=== PATIENT | male | born 2000 | race Caucasian/White ===

== ENCOUNTER 2021-02-16 18:29 | Emergency (ER) | payer OTHER ==
[~2021-02-16] VITALS: Ht 172.7 cm; Wt 104.0 kg
--- NOTE | 2021-02-16 20:20 | RAD ---
Study: XR ABDOMEN 1V Indication: Constipation. Comparison: None. Findings: Nonobstructive bowel gas pattern. Small amount of well-formed stool within the colon. No pneumoperito neum. No radiographic evidence for organomegaly. Impression: Nonobstructive bowel gas pattern. Small amount of well-formed stool within the colon. Electronically signed by: HOA BOATENG MD (02/16/2021 8:18 PM) [facility]
[2021-02-16] MEDS ORDERED: MAGNESIUM CITRATE 296 ML SOLUTION. PO ONE (20:30)
--- NOTE | 2021-02-16 20:49 | PHYS DOC ---
Past History Past Medical History: No Pertinent History (XIANG VILA APRN) Past Surgical History: No Surgical History (XIANG VILA APRN) Alcohol Use: Occasionally (XIANG VILA APRN) Adult General Chief Complaint Chief Complaint: Neck Pain HPI HPI Patient is a 21-year-old male, presents emergency department complaining of right-sided neck pain for the past 2 weeks, right knee numbness off and on, constipation problems for "quite some time ". Patient denies any nausea, vomiting, or diarrhea. Patient denies chest pain or shortness of breath. Arnaldo ramirez denies any recent fever or chills. Patient denies any injury to his right knee. Patient states he had a normal BM yesterday. Patient denies taking any medications at home, takes no prescription medications, no [id number] medications, has no known drug allergies, patient states he vapes but does not smoke cigarettes, denies illicit drug use, drinks occasionally on the weekends. Patient denies injury to his neck, however he states he thinks he may have slept funny on it since he has had a stiff neck for the past 2 weeks. (XIANG VILA APRN) Review of Systems Review of Systems 14 body systems of review of systems have been reviewed. See HPI for pertinent positives and negative responses, otherwise all other systems are negative, nonpertinent or noncontributory. (XIANG VILA APRN) Current Medications Current Medications Current Medications Medications (Trade) Dose Ordered Sig/Liz Start Time Stop Time Status Last Admin Dose Admin Magnesium Citrate (Citroma) 296 ml 1X ONCE 02/16/21 20:30 02/16/21 20:37 DC (XIANG VILA APRN) Allergies Allergies Allergies Coded Allergies Type Severity Reaction Last Updated Verified No Known Drug Allergies 02/16/21 No (XIANG VILA APRN) Physical Exam Physical Exam Constitutional: Well developed, well nourished, no acute distress, non-toxic appearance. 21-year-old male in no apparent distress. HENT: Normocephalic, atraumatic, bilateral external ears normal, oropharynx moist, no oral exudates, nose normal. No lymphadenopathy of the head or neck appreciated, oropharynx pink moist and without infectious process appreciated. No meningismus signs, no drooling, no trismus. Eyes: PERRLA, EOMI, conjunctiva normal, no discharge. Neck: Normal range of motion, no tenderness, supple, no stridor. No nuchal rigidity, no midline spine tenderness, no meningismus signs, pain along right trapezius muscle, there is no muscle spasm appreciated, no cervical spine step- offs appreciated. Cardiovascular:Heart rate regular rhythm, no murmur, heart sounds S1-S2 to auscultation. Lungs & Thorax: Bilateral breath sounds clear to auscultation all lung godoy, no adventitious lung sounds appreciated. Abdomen: Bowel sounds normal, soft, no tenderness, no masses, no pulsatile masses. Skin: Warm, dry, no erythema, no rash. Back: No tenderness, no CVA tenderness. Extremities: No tenderness, no cyanosis, no clubbing, ROM intact, no edema. Negative Ollie's test, negative Anthony's test, negative valgus and varus test of the right knee. No swelling appreciated, no deformity of the right knee appreciated, distal cap refill less than 2 seconds. Neurologic: Alert and oriented X 3, normal motor function, normal sensory function, no focal deficits noted. Psychologic: Affect normal, judgement normal, mood normal. (XIANG VILA APRN) Current Patient Data Vital Signs Vital Signs Date Time Temp Pulse Resp B/P (MAP) Pulse Ox O2 Delivery O2 Flow Rate FiO2 02/16/21 19:00 98.5 89 20 120/80 (93) 97 Room Air (XIANG VILA APRN) EKG EKG [] (XIANG VILA APRN) Radiology/Procedures Radiology/Procedures PATIENT: QUIRINO ASENCIO ACCOUNT: [id number] : 2000 LOCATION: ER AGE: 21 SEX: M EXAM STATUS: REG ER ORD. PHYSICIAN: XIANG VILA APRN REASON: CONSTIPATION PROCEDURE: KUB Study: XR ABDOMEN 1V Indication: Constipation. Comparison: None. Findings: Nonobstructive bowel gas pattern. Small amount of well-formed stool within the colon. No pneumoperitoneum. No radiographic evidence for organomegaly. Impression: Nonobstructive bowel gas pattern. Small amount of well-formed stool within the colon. Electronically signed by: HOA BOATENG MD (02/16/2021 8:18 PM) [facility] DICTATED AND SIGNED BY: HOA BOATENG MD DATE: 02/16/212016 CC: XIANG VILA APRN; PCP,UNKNOWN ~MTH0 0 (XIANG VILA APRN) Heart Score C/O Chest Pain: No Risk Factors: Risk Factors: DM, Current or recent (<one month) smoker, HTN, HLP, family history of CAD, obesity. Risk Scores: Risk Factors: DM, Current or recent (<one month) smoker, HTN, HLP, family history of CAD, obesity. (XIANG VILA APRN) Course & Med Decision Making Course & Med Decision Making Pertinent Labs and Imaging studies reviewed. (See chart for details) 21-year-old male, vital signs reviewed, presents emergency department concerning for neck pain, constipation, and right knee pain. Physical examination was on remarkable. Will order KUB to evaluate patient's complaint of constipation. KUB interpreted by house radiologist shows bowel gas pattern with small amount of stool. We will treat patient's constipation with magnesium citrate. Patient requesting 1 day off of work, will give patient work excuse. Will recommend [id number] Tylenol and Motrin for ongoing neck pain and right knee pains. Dontrell wrap to right knee applied by ED clothing designer. Patient gave verbal understanding of discharge home instructions, magnesium citrate use, follow-up with primary care physician soon, Dontrell wrap to right knee use, return to ER precautions and concerns, patient had no further questions or concerns, was discharged to home without incident. (XIANG VILA APRN) Course & Med Decision Making Did not see or evaluate patient. Agree with TEMPERING OVEN OPERATOR's work-up and disposition per note. (MARYCARMEN CABA MD) Dragon Disclaimer Dragon Disclaimer This electronic medical record was generated, in whole or in part, using a voice recognition dictation system. (XIANG VILA APRN) Departure Departure: Impression: Primary Impression: Constipation Additional Impressions: Stiff neck Right knee pain Disposition: 01 DC HOME SELF CARE/HOMELESS Condition: GOOD Referrals: PCP,UNKNOWN (PCP) Patient Instructions: Knee Wraps (Elastic Bandage) and RICE Additional Instructions: Please use Dontrell wrap to support your right knee, take the magnesium citrate medication as directed, follow-up with your doctor at the [facility] soon for reevaluation for ongoing problems, return to the emergency department for worsening symptoms or other concerns. EMERGENCY DEPARTMENT GENERAL DISCHARGE INSTRUCTIONS Thank you for coming to [facility] (ED) today and trusting us with you care. We trust that you had a positivie experience in our Emergency Department. If you wish to speak to the department management, you may call the director at [phone]. YOUR FOLLOW UP INSTRUCTIONS ARE FOLLOWS: 1. Do you have a private Doctor? If you do not have a private doctor, please ask for a resource list of physicians or clinics that may be able to assist you with follow up care. 2. The Emergency Physician has interpreted your x-rays. The X-Ray specialist will also review them. If there is a change in the findings, you will be notified in 48 hours when at all possible. 3. A lab test or culture has been done, your results will be reviewed and you will be notified if you need a change in treatment. ADDITIONAL INSTRUCTIONS AND INFORMATION: 1. Your care today has been supervised by a physician who is specially trained in emergency care. Many problems require more than one evaluation for a complete diagnosis and treatment. We recommend that you schedule your follow up appointment as recommended to ensure complete treatment of you illness or injury. If you are unable to obtain follow up care and continue to have a problem, or if your condition worsens, we recommend that you return to the ED. 2. We are not able to safely determine your condition over the phone nor are we able to give sound medical advice over the phone. For these safety reasons, if you call for medical advice we will ask you to come to the ED for further evaluation. 3. If you have any questions regarding these discharge instructions please call the ED at [phone]. SAFETY INFORMATION: In the interest of safety, wellness, and injury prevention; we encourage you to wear your sealbelt, if you smoke; quite smoking, and we encourage family to use a protective helmet for bicycling and other sporting events that present an increased risk for head injury. IF YOUR SYMPTOMS WORSEN OR NEW SYMPTOMS DEVELOP, OR YOU HAVE CONCERNS ABOUT YOUR CONDITION; OR IF YOUR CONDITION WORSENS WHILE YOU ARE WAITING FOR YOUR FOLLOW UP APPOINTMEN T; EITHER CONTACT YOUR PRIMARY CARE DOCTOR, THE PHYSICIAN WHOSE NAME AND NUMBER YOU WERE GIVEN, OR RETURN TO THE ED IMMEDIATELY. Problem Qualifiers Primary Impression: Constipation Constipation type: unspecified constipation type Qualified Codes: K59.00 - Constipation, unspecified Additional Impressions: Right knee pain Chronicity: acute Qualified Codes: M25.561 - Pain in right knee XIANG VILA APRN Feb 16, 2021 20:48 MARYCARMEN CABA MD Feb 17, 2021 00:01
[2021-02-16 21:00] VITALS: BP 146/73
== END 2021-02-16 21:05 | disposition home or self-care (01) ==
LOC: ER 18:29
DX: K59.00 Constipation, unspecified (principal); M43.6 Torticollis; M25.561 Pain in right knee
CPT/HCPCS: 74018; 99283

== ENCOUNTER 2021-02-18 12:16 | Emergency (ER) | payer OTHER ==
[~2021-02-18] VITALS: Ht 172.7 cm; Wt 102.8 kg
[2021-02-18] MEDS ORDERED: METOCLOPRAMIDE HCL 10 MG/2 ML VIAL. IVP ONE (13:15)
[2021-02-18] MEDS ORDERED: diphenhydrAMINE 50 MG/ML VIAL IVP ONE (13:15)
[2021-02-18] MEDS ORDERED: DEXAMETHASONE SOD PHOS 10 MG/ML VIAL. IVP ONE (13:15)
[2021-02-18] MEDS ORDERED: KETOROLAC 15 MG/ML VIAL. IVP ONE (13:15)
[2021-02-18] MEDS ORDERED: IV NORMAL SALINE 1,000ML 1,000 ML IV ONE (13:15)
[2021-02-18] MEDS ORDERED: IOHEXOL 350 MG/ML 100 ML VIAL. IV ONE (13:30)
--- NOTE | 2021-02-18 13:37 | EKG ---
[address] [address] Test Date: 2021-02-18 Test Time: 13:11:18 Pat Name: QUIRINO ASENCIO Department: Room: Gender: M General Agent: : [id number] Requested By: XIANG FRANK Order Number: [id number] Reading MD: Measurements Intervals [place] Rate: 81 P: 43 CO: 162 QRS: 15 QRSD: 76 T: 32 QT: 344 QTc: 400 Interpretive Statements SINUS RHYTHM R-S TRANSITION ZONE IN V LEADS DISPLACED TO THE RIGHT OTHERWISE NORMAL ECG RI6.02 No previous ECG available for comparison
--- NOTE | 2021-02-18 13:46 | RAD ---
Exam Date: 02/18/2021 1:[address] HEAD/BRAIN WO Indication: Reason: right sided numbness / Spl. Instructions: / History: TECHNIQUE: Head CT was performed without intravenous contrast. One or more of the following dose re duction techniques were utilized: *Automated exposure control (AEC) *Adjustment of mA and/or kV according to patient size *Use of iterative reconstruction technique *CT scan done according to ALARA, or ALARA/IMAGE GENTLY FINDINGS: The ventricles and sulci are normal for the patient's stated age. There is no evidence of acute int racranial hemorrhage, extra-axial collection, mass effect, midline shift, or acute territorial infarc t. No lesion of the skull base or the calvarium is seen. There is opacification of the right maxillar y sinus. The visualized paranasal sinuses, mastoid air cells and orbits are otherwise normal in appea wilfred. IMPRESSION: No evidence for acute intracranial abnormality. Electronically signed by: Jelani Feliciano MD (02/18/2021 1:43 PM) [id number]
[2021-02-18 14:11] LABS: BASO % 0 % (0-3); EOS # 0.1 x10^3/uL (0.0-0.7); EOS % 1 % (0-3); HEMATOCRIT 46.1 % (39.0-53.0); HEMOGLOBIN 15.6 g/dL (13.0-17.5); LYMPH # 2.2 x10^3/uL (1.0-4.8); LYMPH % 26 % (24-48); MEAN CORPUSCULAR HEMOGLOBIN 29 pg (25-35); MEAN CORPUSCULAR HGB CONC 34 g/dL (31-37); MEAN CORPUSCULAR VOLUME 86 fL (79-100); MONO # 0.6 x10^3/uL (0.0-1.1); MONO % 8 % (0-9); NEUT # 5.5 x10^3uL (1.8-7.7); NEUT % 65 % (31-73); PLATELET COUNT 253 x10^3/uL (140-400); RED BLOOD COUNT 5.37 x10^6/uL (4.30-5.70); RED CELL DISTRIBUTION WIDTH 13.1 % (11.5-14.5); WHITE BLOOD COUNT 8.5 x10^3/uL (4.0-11.0)
--- NOTE | 2021-02-18 14:15 | RAD ---
EXAMINATION: CTA HEAD AND NECK W/WO CONTRAST CLINICAL HISTORY: Right face, arm, and leg numbness. Headache. TECHNIQUE: Spiral high resolution axial images were obtained through the head, neck and superior medi astinum following bolus administration of intravenous contrast for CT angiography. 3D postprocessing with maximum intensity projection images also performed. CT Dose Reduction Employed: One or more of the following individualized dose reduction techniques wer e utilized for this examination: 1. Automated exposure control 2. Adjustment of the mA and/or kV ac cording to patient size 3. Use of iterative reconstruction technique. COMPARISON: NECT head same day FINDINGS: HEAD: No evidence of acute ischemic stroke or intracranial hemorrhage. Asymmetrically small and completely opacified right maxillary sinus. NECK: Soft Tissues: No evidence of organized soft tissue collection or mass. No cervical lymphadenopathy. Spine: Normal anatomic alignment. No significant degenerative changes. Lung Apices: Visualized lung apices unremarkable. CT ARTERIOGRAM: Extracranial Circulation: Aortic Arch: Normal branching pattern from the aortic arch. No significant stenosis in the proximal b rachiocephalic vessels. Carotid Stenosis: Right Common: No significant stenosis. Right Internal Carotid Plaque: No significant plaque formation. Right Internal Carotid Stenosis (% by NASCET Criteria): No significant stenosis. Left Common: No significant stenosis. Left Internal Carotid Plaque: No significant plaque formation. Left Internal Carotid Stenosis (% by NASCET Criteria): No significant stenosis. Cervical Vertebral Arteries: Patency: Bilateral Dominance: Codominant Intracranial Circulation: Anterior Circulation: No evidence of large vessel occlusion. Vertebrobasilar Circulation: No evidence of large vessel occlusion. IMPRESSION: No evidence of large vessel occlusion or significant carotid arterial stenosis. If concern for acute CVA persists, recommend MRI for further evaluation. Completely opacified right maxillary sinus, correlate clinically for sinus disease. Electronically signed by: Roberth Harris DO (02/18/2021 2:12 PM) [id number]
[2021-02-18 14:25] LABS: POTASSIUM ISTAT 4.3 mmol/L (3.5-5.0)
[2021-02-18] MEDS ORDERED: BUTA1TAB23 PO (15:17)
--- NOTE | 2021-02-18 15:17 | PHYS DOC ---
Past History Past Medical History: No Pertinent History Past Medical History History of substance abuse for which he was treated Past Surgical History: No Surgical History Additional Smoking Information: pt endorses vape use-daily and constantly (every few minutes) Alcohol Use: Occasionally Drug Use: None Social History Patient works nights and sleeps during the day. General Adult EDM: Chief Complaint: NEURO SYMPTOMS/DEFICITS HPI: HPI: Patient is a 21-year-old male who presents to the emergency department with right-sided face numbness as well as right arm and right leg numbness. This has been occurring for the past few weeks and has increased in frequency. This occurs in the mornings before he falls asleep after patient gets out of mini shifter at work. Patient also complains of headache which is localized behind his right eye. Patient denies any muscle weakness on his right side. Patient d enies any pain on right side of face, right arm, right leg. Patient claims this numbness has persisted longer than usual, usually it resolves after couple of hours or when the patient falls asleep. Patient claimed to have change in vision that resolved spontaneously and said that these episodes correlate with the numbness and headaches. Patient denies any fever, chills, nausea. vomiting, diarrhea Review of Systems: Review of Systems: Constitutional: Denies fever or chills Eyes: Denies redness or eye pain HENT: Right-sided facial numbness, denies nasal congestion or sore throat Respiratory: Denies cough or shortness of breath Cardiovascular: Denies chest pain or palpitations GI: Denies abdominal pain, nausea, or vomiting : Denies dysuria or hematuria Musculoskeletal: Right arm numbness, right leg numbness, no weakness, no pain Integument: Denies rash or skin lesions Neurologic: Right sided headache behind right eye, no aura Complete systems were reviewed and found to be within normal limits, except as documented in this note. Family History: Family History: No relevant family history Current Medications: Current Meds: Current Medications Medications (Trade) Dose Ordered Sig/Liz Start Time Stop Time Status Last Admin Dose Admin Dexamethasone Sodium Phosphate (Decadron) 10 mg 1X ONCE 02/18/21 13:15 02/18/21 13:16 DC 02/18/21 13:49 10 MG Diphenhydramine HCl (Benadryl) 25 mg 1X ONCE 02/18/21 13:15 02/18/21 13:16 DC 02/18/21 13:50 25 MG Iohexol (Omnipaque 350 Mg/ml) 100 ml 1X ONCE 02/18/21 13:30 02/18/21 13:37 DC 02/18/21 13:44 100 ML Ketorolac Tromethamine (Toradol 15mg Vial) 15 mg 1X ONCE 02/18/21 13:15 02/18/21 13:16 DC 02/18/21 13:50 15 MG Metoclopramide HCl (Reglan Vial) 10 mg 1X ONCE 02/18/21 13:15 02/18/21 13:16 DC 02/18/21 13:49 10 MG Sodium Chloride 1,000 ml @ 1,000 mls/hr 1X ONCE 02/18/21 13:15 02/18/21 14:14 DC 02/18/21 13:49 1,000 MLS/HR Allergies: Allergies: Allergies Coded Allergies Type Severity Reaction Last Updated Verified No Known Drug Allergies 02/16/21 No Physical Exam: PE: Constitutional: Well developed, well nourished, no acute distress, non-toxic appearance HENT: Normocephalic, atraumatic Eyes: conjunctiva normal, no discharge Neck: Normal range of motion, no tenderness, supple Lungs & Thorax: No respiratory distress, equal chest rise and fall Abdomen: Soft, no tenderness Skin: Warm, dry, no erythema, no rash Back: No tenderness, no CVA tenderness Extremities: No tenderness, ROM intact, no edema Neurologic: Alert and oriented X 3, normal motor function, right arm and leg reduced sensation to palpation Psychologic: Affect normal, judgment normal Current Patient Data: Labs: Laboratory Tests Test 02/18/21 13:40 02/18/21 13:50 White Blood Count 8.5 x10^3/uL (4.0-11.0) Red Blood Count 5.37 x10^6/uL (4.30-5.70) Hemoglobin 15.6 g/dL (13.0-17.5) POC Hemoglobin 16.0 gm/dL Hematocrit 46.1 % (39.0-53.0) POC Hematocrit 47 % Mean Corpuscular Volume 86 fL (79-100) Mean Corpuscular Hemoglobin 29 pg (25-35) Mean Corpuscular Hemoglobin Concent 34 g/dL (31-37) Red Cell Distribution Width 13.1 % (11.5-14.5) Platelet Count 253 x10^3/uL (140-400) Neutrophils (%) (Auto) 65 % (31-73) Lymphocytes (%) (Auto) 26 % (24-48) Monocytes (%) (Auto) 8 % (0-9) Eosinophils (%) (Auto) 1 % (0-3) Basophils (%) (Auto) 0 % (0-3) Neutrophils # (Auto) 5.5 x10^3uL (1.8-7.7) Lymphocytes # (Auto) 2.2 x10^3/uL (1.0-4.8) Monocytes # (Auto) 0.6 x10^3/uL (0.0-1.1) Eosinophils # (Auto) 0.1 x10^3/uL (0.0-0.7) Basophils # (Auto) 0.0 x10^3/uL (0.0-0.2) POC Sodium 141 mmol/L (135-145) POC Potassium 4.3 mmol/L (3.5-5.0) POC Chloride 103 mmol/L (98-110) POC Total CO2 28 mmol/L (23-32) Anion Gap 15 mmol/L (6-14) H POC Blood Urea Nitrogen 21 mg/dL (8-26) POC Creatinine 1.0 mg/dL (0.5-1.4) Glucose Level 82 mg/dL (60-99) POC Ionized Calcium (Brandon) 1.22 mmol/L (1.13-1.32) POC Troponin I 0.00 ng/ml (<0.08) Vital Signs: Vital Signs Date Time Temp Pulse Resp B/P (MAP) Pulse Ox O2 Delivery O2 Flow Rate FiO2 02/18/21 14:30 83 119/57 (77) 97 Room Air 02/18/21 14:02 18 02/18/21 12:58 99.0 EKG: EKG: @1311 NSR at 81bpm, NO ST elevation, QRS 76ms, QT/QTc 344/400ms Radiology/Procedures: Radiology/Procedures: PROCEDURE: CT ANGIOGRAPHY HEAD AND NECK EXAMINATION: CTA HEAD AND NECK W/WO CONTRAST CLINICAL HISTORY: Right face, arm, and leg numbness. Headache. TECHNIQUE: Spiral high resolution axial images were obtained through the head, neck and superior mediastinum following bolus administration of intravenous contrast for CT angiography. 3D postprocessing with maximum intensity projection images also performed. CT Dose Reduction Employed: One or more of the following individualized dose reduction techniques were utilized for this examination: 1. Automated exposure control 2. Adjustment of the mA and/or kV according to patient size 3. Use of iterative reconstruction technique. COMPARISON: NECT head same day FINDINGS: HEAD: No evidence of acute ischemic stroke or intracranial hemorrhage. Asymmetrically small and completely opacified right maxillary sinus. NECK: Soft Tissues: No evidence of organized soft tissue collection or mass. No cervical lymphadenopathy. Spine: Normal anatomic alignment. No significant degenerative changes. Lung Apices: Visualized lung apices unremarkable. CT ARTERIOGRAM: Extracranial Circulation: Aortic Arch: Normal branching pattern from the aortic arch. No significant stenosis in the proximal brachiocephalic vessels. Carotid Stenosis: Right Common: No significant stenosis. Right Internal Carotid Plaque: No significant plaque formation. Right Internal Carotid Stenosis (% by NASCET Criteria): No significant stenosis. Left Common: No significant stenosis. Left Internal Carotid Plaque: No significant plaque formation. Left Internal Carotid Stenosis (% by NASCET Criteria): No significant stenosis. Cervical Vertebral Arteries: Patency: Bilateral Dominance: Codominant Intracranial Circulation: Anterior Circulation: No evidence of large vessel occlusion. Vertebrobasilar Circulation: No evidence of large vessel occlusion. IMPRESSION: No evidence of large vessel occlusion or significant carotid arterial stenosis. If concern for acute CVA persists, recommend MRI for further evaluation. Completely opacified right maxillary sinus, correlate clinically for sinus disease. Electronically signed by: Roberth Harris DO (02/18/2021 2:12 PM) [id number] PROCEDURE: CT HEAD WO CONTRAST Exam Date: 02/18/2021 1:[address] HEAD/BRAIN WO Indication: Reason: right sided numbness / Spl. Instructions: / History: TECHNIQUE: Head CT was performed without intravenous contrast. One or more of the following dose reduction techniques were utilized: *Automated exposure control (AEC) *Adjustment of mA and/or kV according to patient size *Use of iterative reconstruction technique *CT scan done according to ALARA, or ALARA/IMAGE GENTLY FINDINGS: The ventricles and sulci are normal for the patient's stated age. There is no evidence of acute intracranial hemorrhage, extra-axial collection, mass effect, midline shift, or acute territorial infarct. No lesion of the skull base or the calvarium is seen. There is opacification of the right maxillary sinus. The visualized paranasal sinuses, mastoid air cells and orbits are otherwise normal in appearance. IMPRESSION: No evidence for acute intracranial abnormality. Electronically signed by: Jelani Feliciano MD (02/18/2021 1:43 PM) [id number] Heart Score: C/O Chest Pain: N/A Risk Factors: Risk Factors: DM, Current or recent (<one month) smoker, HTN, HLP, family history of CAD, obesity. Risk Scores: Score 0 - 3: 2.5% MACE over next 6 weeks - Discharge Home Score 4 - 6: 20.3% MACE over next 6 weeks - Admit for Clinical Observation Score 7 - 10: 72.7% MACE over next 6 weeks - Early Invasive Strategies Course & Med Decision Making: Course & Med Decision Making 21-year-old male presents the emergency department with right-sided face arm and leg numbness. Patient also complained of right-sided headache. Labs and imaging were performed and inconclusive. Medications to control headache were given. Patient was cleared for discharge and was given Fioricet to control headaches, and was advised to follow-up with neurologist. Angel Disclaimer: Dragon Disclaimer: This electronic medical record was generated, in whole or in part, using a voice recognition dictation system. Departure Departure: Impression: Primary Impression: Headache Qualified Codes: R51.9 - Headache, unspecified Disposition: 01 DC HOME SELF CARE/HOMELESS Condition: STABLE Referrals: PCP,UNKNOWN (PCP) ANDRIY WATKINS MD Patient Instructions: Headache, FAQs Scripts Butalb/Acetaminophen/Caffeine ([id number] 50-325-40) 1 Each Tablet 1 EACH PO Q6HRS PRN for HEADACHE, #14 TAB Prov: XIANG FRANK DO 02/18/21 XIANG FRANK DO Feb 18, 2021 15:17
[2021-02-18 15:18] VITALS: BP 114/69
== END 2021-02-18 15:25 | disposition home or self-care (01) ==
LOC: ER 12:16
DX: R51.9 Headache, unspecified (principal); R20.0 Anesthesia of skin; F17.220 Nicotine dependence, chewing tobacco, uncomplicated
CPT/HCPCS: 36415; 70450; 70496; 70498; 80047; 82553; 83605; 83690; 83735; 84484; 85025; 93005; 96361; 96374; 96375; 99285; G0480; J1100; J1200; J1885; J2765; J7030; Q9967

== ENCOUNTER 2021-03-30 05:08 | Emergency (ER) | payer OTHER ==
[~2021-03-30] VITALS: Ht 172.7 cm; Wt 106.0 kg
[~2021-03-30 05:08] MED LIST: BUTA1TAB23 PO
[2021-03-30] MEDS ORDERED: IV RINGERS SOLUTION,LACTATED 1,000 ML IV ONE (05:15)
--- NOTE | 2021-03-30 06:14 | PHYS DOC ---
Past History Past Surgical History: No Surgical History Alcohol Use: Occasionally Drug Use: None General Adult EDM: Chief Complaint: ABDOMINAL PAIN HPI: HPI: 21-year-old male presents with abdominal pain. Patient has been having on and off pain he describes as a warm flushing feeling. It seems to happen after he eats. It is mild to moderate in intensity and fades away on its own. He does not believe he has had any tenderness of the abdomen. He has not noticed any pattern based on what kind of food he eats. His bowel habits have not changed. He denies dysuria or increased urinary frequency. No nausea, vomiting, or diarrhea. He denies fever or chills. Review of Systems: Review of Systems: Constitutional: Denies fever or chills Eyes: Denies change in visual acuity HENT: Denies nasal congestion or sore throat Respiratory: Denies cough or shortness of breath Cardiovascular: Denies chest pain or edema GI: Lower abdominal pain. Denies nausea, vomiting, bloody stools or diarrhea : Denies dysuria Musculoskeletal: Denies back pain or joint pain Integument: Denies rash Neurologic: Denies headache, focal weakness or sensory changes Endocrine: Denies polyuria or polydipsia Lymphatic: Denies swollen glands Psychiatric: Denies depression or anxiety Current Medications: Current Meds: Current Medications Medications (Trade) Dose Ordered Sig/Liz Start Time Stop Time Status Last Admin Dose Admin Fentanyl Citrate (Fentanyl 2ml Vial) 75 mcg 1X ONCE 03/30/21 05:15 03/30/21 05:21 DC Lactated Ringer's 1,000 ml @ 1,000 mls/hr 1X ONCE 03/30/21 05:15 03/30/21 05:21 DC Allergies: Allergies: Allergies Coded Allergies Type Severity Reaction Last Updated Verified No Known Drug Allergies 02/16/21 No Physical Exam: PE: Constitutional: Well developed, well nourished, obese, no acute distress, non- toxic appearance. [] HENT: Normocephalic, atraumatic, bilateral external ears normal, oropharynx moist, no oral exudates, nose normal. [] Eyes: PERRLA, EOMI, conjunctiva normal, no discharge. [] Neck: Normal range of motion, no tenderness, supple, no stridor. [] Cardiovascular: Heart rate regular rhythm, no murmur [] Lungs & Thorax: Bilateral breath sounds clear to auscultation [] Abdomen: Bowel sounds normal, soft, no tenderness, no masses, no pulsatile masses. [] Skin: Warm, dry, no erythema, no rash. [] Back: No tenderness, no CVA tenderness. [] Extremities: No tenderness, no cyanosis, no clubbing, ROM intact, no edema. [] Neurologic: Alert and oriented X 3, normal motor function, normal sensory function, no focal deficits noted. [] Psychologic: Affect normal, judgement normal, mood normal. [] EKG: EKG: [] Radiology/Procedures: Radiology/Procedures: [] Impressions: 3-D EXAMINATION: Abdominal radiograph. VIEWS: Single view COMPARISON: 02/16/2021 INDICATION: Abdominal pelvic pain. FINDINGS: Nonobstructive bowel gas pattern. No gross pneumoperitoneum.No abnormal intra- abdominal calcifications.No acute process process. IMPRESSION: Nonobstructive bowel gas pattern. Electronically signed by: Chan Wright MD (03/30/2021 7:17 AM) [id number] DICTATED AND SIGNED BY: CHAN WRIGHT MD DATE: 03/30/21 0717 CC: DESTINEE YBARRA DO; KATIE TORRES MD ~MTH0 0 Heart Score: C/O Chest Pain: N/A Risk Factors: Risk Factors: DM, Current or recent (<one month) smoker, HTN, HLP, family history of CAD, obesity. Risk Scores: Score 0 - 3: 2.5% MACE over next 6 weeks - Discharge Home Score 4 - 6: 20.3% MACE over next 6 weeks - Admit for Clinical Observation Score 7 - 10: 72.7% MACE over next 6 weeks - Early Invasive Strategies Course & Med Decision Making: Course & Med Decision Making Pertinent Labs and Imaging studies reviewed. (See chart for details) The patient's labs are unremarkable. His his KUB is a nonobstructive bowel gas pattern. He does have a moderate amount of stool. This could be the cause of his discomfort. I have advised that he consider a bowel cleanout with magnesium citrate or high-dose MiraLAX. Patient states verbal understanding. He is stable for discharge at this time. [] Dragon Disclaimer: Dragon Disclaimer: This electronic medical record was generated, in whole or in part, using a voice recognition dictation system. Departure Departure: Impression: Primary Impression: Constipation Disposition: 01 HOME / SELF CARE / HOMELESS Condition: STABLE Referrals: KATIE TORRES MD (PCP) Patient Instructions: Constipation, Adult, [id number] DESTINEE YBARRA DO March 30, 2021 06:14
[2021-03-30] MEDS ORDERED: IV NORMAL SALINE 1,000ML 1,000 ML IV ONE (06:15)
[2021-03-30 06:59] LABS: CLARITY,URINE CLEAR; COLOR,URINE YELLOW
[2021-03-30 07:00] LABS: BACTERIA,URINE 0 /HPF (0-FEW); BILIRUBIN,URINE NEG (NEG); GLUCOSE,URINE NEG (NEG); NITRITE,URINE NEG (NEG); RBC,URINE 0 /HPF (0-2); UROBILINOGEN,URINE 0.2 mg/dL (0.2 mg/dL); WBC,URINE OCC /HPF (0-4)
[2021-03-30 07:02] LABS: BASO % 0 % (0-3); EOS # 0.2 x10^3/uL (0.0-0.7); EOS % 2 % (0-3); HEMOGLOBIN 15.1 g/dL (13.0-17.5); LYMPH # 2.7 x10^3/uL (1.0-4.8); LYMPH % 27 % (24-48); MEAN CORPUSCULAR HEMOGLOBIN 29 pg (25-35); MEAN CORPUSCULAR HGB CONC 34 g/dL (31-37); MEAN CORPUSCULAR VOLUME 86 fL (79-100); MONO # 0.8 x10^3/uL (0.0-1.1); MONO % 8 % (0-9); NEUT # 6.3 x10^3uL (1.8-7.7); NEUT % 63 % (31-73); PLATELET COUNT 222 x10^3/uL (140-400); RED BLOOD COUNT 5.13 x10^6/uL (4.30-5.70); RED CELL DISTRIBUTION WIDTH 13.3 % (11.5-14.5)
[2021-03-30 07:07] LABS: CALCIUM 8.7 mg/dL (8.5-10.1); CREATININE 0.9 mg/dL (0.7-1.3); GFR 106.5; POTASSIUM 3.8 mmol/L (3.5-5.1)
[2021-03-30 07:13] LABS: ALBUMIN 4.1 g/dL (3.4-5.0); ALBUMIN/GLOBULIN RATIO 1.2 (1.0-1.7); TOTAL BILIRUBIN 0.5 mg/dL (0.2-1.0); TOTAL PROTEIN 7.6 g/dL (6.4-8.2)
--- NOTE | 2021-03-30 07:20 | RAD ---
3-D EXAMINATION: Abdominal radiograph. VIEWS: Single view COMPARISON: 02/16/2021 INDICATION: Abdominal pelvic pain. FINDINGS: Nonobstructive bowel gas pattern. No gross pneumoperitoneum.No abnormal intra-abdominal calcification s.No acute process process. IMPRESSION: Nonobstructive bowel gas pattern. Electronically signed by: Bill Wright MD (03/30/2021 7:17 AM) [id number]
[2021-03-30 07:21] VITALS: BP 142/67
== END 2021-03-30 08:10 | disposition home or self-care (01) ==
LOC: ER 05:08
DX: K59.00 Constipation, unspecified (principal); R10.30 Lower abdominal pain, unspecified
CPT/HCPCS: 36415; 74018; 80053; 81001; 83690; 85025; 96360; 99284; J7030

== ENCOUNTER 2021-05-04 18:19 | Emergency (ER) | payer OTHER | END 2021-05-04 18:45 | disposition left against medical advice (07) | LOC: ER 18:19 | DX: R10.9 Unspecified abdominal pain (principal); Z53.21 Procedure and treatment not carried out due to patient leaving prior to being seen by health care provider ==